=== PATIENT | female | born 1930 | race Caucasian/White ===

== ENCOUNTER → 2020-06-05 | Outpatient (CLI) | payer MEDICARE ==
--- NOTE | 2020-06-05 10:30 | NUR ---
MBSS COMPLETED. -S/S OF ASPIRATION. RECOMMEND REGULAR TEXTURE, THIN LIQUIDS; PILLS WHOLE WITH LIQUIDS. RECOMMENDATIONS: 1. GI CONSULT SECONDARY TO COMPLAINS OF VOMITING BILE AFTER MEALS. PLEASE CONSIDER UPPER GI. BOTTOM LINER PROVIDED Pt AND DAUGHTER WITH RESULTS AND RECOMMENDATIONS VIA VERBAL AND WRITTEN MODALITY. ALL QUESTIONS ANSWERED AT THIS TIME. Addendum: 06/05/20 at 1335 by JULIET HENRIQUEZ, [facility] Amended: Links added.
== END | disposition home or self-care (01) ==
LOC: RAH 10:24
PROVIDERS: ATTEND Internal Medicine Gastroenterology
DX: R63.3 Feeding difficulties (principal); R13.12 Dysphagia, oropharyngeal phase
CPT/HCPCS: 74230; 92611